=== PATIENT | female | born 1930 | race Caucasian/White ===

== ENCOUNTER 2017-10-25 10:58 | Inpatient (IN) | payer OTHER ==
[~2017-10-25] VITALS: Ht 170.2 cm; Wt 73.9 kg
[~2017-10-25 10:58] MED LIST: GLU850 PO; NEU300 PO; ZES20 PO
[2017-10-25 11:32] VITALS: Ht 170.2 cm; Wt 73.9 kg
[2017-10-25 14:00] LABS: BASOPHIL % 0.4 % (0-2); PLATELET COUNT 212 x10^3mcL (130-400)
[2017-10-25 14:02] LABS: RED CELL DISTRIBUTION WIDTH 15.6 % (11.5-14.5)
[2017-10-25 14:26] LABS: CALCIUM 9.5 mg/dL (8.5-10.1); CARBON DIOXIDE 24.5 mmol/L (21-32); CHLORIDE SERUM 102 mmol/L (98-107); CREATININE SERUM 1.3 mg/dL (0.6-1.0); GLUCOSE SERUM 68 mg/dL (74-106); POTASSIUM SERUM 3.8 mmol/L (3.5-5.1); SODIUM SERUM 141 mmol/L (136-145)
[2017-10-25 14:32] LABS: ALKALINE PHOSPHATASE 84 U/L (46-116); ALT/SGPT 36 U/L (14-59); AST/SGOT 72 U/L (15-37); BILIRUBIN TOTAL 0.79 mg/dL (0.20-1.00); TOTAL PROTEIN, SERUM 7.1 g/dL (6.4-8.2)
[2017-10-25 14:33] LABS: ALBUMIN 3.1 g/dL (3.4-5.0)
[2017-10-25 18:11] VITALS: BP 156/58
[2017-10-25 18:19] LABS: T3 TOTAL 0.8 ng/mL
[2017-10-25 18:30] LABS: MAGNESIUM 2.1 mg/dL (1.8-2.4); PHOSPHOROUS 2.9 mg/dL (2.5-4.9)
[2017-10-25 18:59] LABS: FREE T4 1.39 ng/dL (0.76-1.46); FREE THYROXINE INDEX 3.6 ug/dL (1.4-4.5); T4(THYROXINE) 9.9 ug/dL (4.7-13.3)
[2017-10-25 20:33] VITALS: BP 149/56
[2017-10-26 04:59] VITALS: BP 156/55
[2017-10-26 07:16] LABS: BASOPHIL % 0.2 % (0-2); PLATELET COUNT 189 x10^3mcL (130-400)
[2017-10-26 07:22] LABS: CALCIUM 8.9 mg/dL (8.5-10.1); CARBON DIOXIDE 23.6 mmol/L (21-32); CHLORIDE SERUM 105 mmol/L (98-107); CHOLESTEROL 143 mg/dL (<200); CHOLESTEROL/HDL RATIO 3.4; CREATININE SERUM 1.1 mg/dL (0.6-1.0); HDL CHOLESTEROL 42 mg/dL (40-60); POTASSIUM SERUM 3.5 mmol/L (3.5-5.1); SODIUM SERUM 140 mmol/L (136-145); TRIGLYCERIDES 121 mg/dL (<150)
[2017-10-26 07:28] LABS: GLUCOSE SERUM 53 mg/dL (74-106)
[2017-10-26 07:29] LABS: RED CELL DISTRIBUTION WIDTH 15.1 % (11.5-14.5)
[2017-10-26 08:50] VITALS: BP 172/69
[2017-10-26 12:48] VITALS: BP 183/72
[2017-10-26 16:27] VITALS: BP 168/68
[2017-10-26 21:50] VITALS: BP 113/65
[2017-10-27 06:25] VITALS: BP 173/64
[2017-10-27 06:46] LABS: PLATELET COUNT 210 x10^3mcL (130-400)
[2017-10-27 06:48] LABS: CALCIUM 9.1 mg/dL (8.5-10.1); CARBON DIOXIDE 25.6 mmol/L (21-32); CHLORIDE SERUM 103 mmol/L (98-107); GLUCOSE SERUM 208 mg/dL (74-106); POTASSIUM SERUM 3.9 mmol/L (3.5-5.1); SODIUM SERUM 137 mmol/L (136-145)
[2017-10-27 06:49] LABS: BASOPHIL % 0 % (0-2); RED CELL DISTRIBUTION WIDTH 14.9 % (11.5-14.5)
[2017-10-27 10:42] VITALS: BP 141/61
[2017-10-27 10:57] VITALS: BP 148/82
[2017-10-27 15:01] LABS: UA SPECIFIC GRAVITY 1.015 (1.005-1.035); microscopic required? YES; urine erythrocyte TRACE (NEGATIVE)
[2017-10-27 15:06] VITALS: BP 139/47
[2017-10-27 15:40] LABS: AMPHETAMINE QUAL UR NONE DETECTED (NEG <=1000)
[2017-10-27] MEDS ORDERED: LEVAQUIN750 MG PO (16:21)
[2017-10-27] MEDS ORDERED: LAC PO (16:22)
[2017-10-27] MEDS ORDERED: BG FS (17:01)
[2017-10-27] MEDS ORDERED: ZES10 PO (17:01)
[2017-10-27] MEDS ORDERED: METHOCARBAMOL500 MG PO (17:02)
[2017-10-27] MEDS ORDERED: COL100 PO (17:02)
[2017-10-27] MEDS ORDERED: TYL325 PO (17:02)
[2017-10-27 18:20] VITALS: BP 170/63
== END 2017-10-28 02:45 | DRG 551 ==
LOC: ED 10:58 → DU 16:49
PROVIDERS: Emergency Medicine; Family Medicine
DX: M51.16 Intervertebral disc disorders with radiculopathy, lumbar region (principal); N17.0 Acute kidney failure with tubular necrosis; G93.41 Metabolic encephalopathy; E44.0 Moderate protein-calorie malnutrition; N39.0 Urinary tract infection, site not specified; Z66 Do not resuscitate; E86.0 Dehydration; E11.42 Type 2 diabetes mellitus with diabetic polyneuropathy; G90.9 Disorder of the autonomic nervous system, unspecified; E11.65 Type 2 diabetes mellitus with hyperglycemia; I11.0 Hypertensive heart disease with heart failure; I50.9 Heart failure, unspecified; W18.39XA Other fall on same level, initial encounter; Z68.26 Body mass index [BMI] 26.0-26.9, adult; Z85.3 Personal history of malignant neoplasm of breast; Z79.84 Long term (current) use of oral hypoglycemic drugs; Z88.6 Allergy status to analgesic agent; Z90.49 Acquired absence of other specified parts of digestive tract; Z90.710 Acquired absence of both cervix and uterus; Z90.12 Acquired absence of left breast and nipple; Y93.89 Activity, other specified; Y92.89 Other specified places as the place of occurrence of the external cause; Y99.8 Other external cause status
CPT/HCPCS: 82962; 83880; 84439; 97110-GP; 97530-GP; J0360; J1100; J1885; J2060; J3490; J7030; J7042; Q0092